=== PATIENT | female | born 1950 | race Caucasian/White ===

== ENCOUNTER → 2016-07-15 | Outpatient (CLI) | payer BC ==
[~2016-07-15] MED LIST: AMARYL2 MG PO; ASPIRIN CHEWABL81 MG PO; CITRACAL SOFT1 EACH PO; CYMBALTA60 MG PO; FERROUS SULFAT325 MG PO; FOSAMAX70 MG PO; METFORMIN HCL1000 MG PO; NEURONTIN 300300 MG PO; NORVASC 5 MG TAB5 MG PO; OMEPRAZOLE40 MG PO; PROVENTIL HFA 61 INH INH; REQUIP0.25 MG PO; SYNTHROID150 MCG PO; VITAMIN D 11000 UNIT PO; ZESTRIL 40 MG T40 MG PO; ZOCOR 10 MG TAB10 MG PO
== END ==
LOC: RT 11:19
DX: J44.9 Chronic obstructive pulmonary disease, unspecified (principal); G47.34 Idiopathic sleep related nonobstructive alveolar hypoventilation
CPT/HCPCS: 36600; 82803

== ENCOUNTER → 2016-07-17 | Outpatient (CLI) | payer BC | LOC: SLEEP 21:30 | DX: G47.33 Obstructive sleep apnea (adult) (pediatric) (principal) | CPT/HCPCS: 95810 ==

== ENCOUNTER 2020-05-28 16:33 | Emergency (ER) | payer MEDICARE, OTHER ==
[~2020-05-28 16:33] MED LIST changes: -ASPIRIN CHEWABL81 MG PO; +BACLOFEN10 MG PO; +CIMZIA400 MG/2 M SC; +ENBREL25 MG/0.5 SC; +GLUCOPHAGE1000 MG PO; +JANUVIA100 MG PO; +LIPITOR10 MG PO; +LOPERAMIDE2 MG PO; +NAPROSYN500 MG PO; +NAPROXEN500 MG PO; +PLAQUENIL 200200 MG PO; +PROTONIX 40 MG40 M1 PO; +PROTONIX40 MG PO; -PROVENTIL HFA 61 INH INH; +QUESTRAN PACKET4 GM PO; +REXULTI PO; +ULTRAM50 MG PO; +XELODA150 MG PO
[2020-05-28 18:47] LABS: HEMOGLOBIN 14.7 gm/dl (12.3-15.3); RED BLOOD COUNT 4.5 M/UL (4.00-5.10); WHITE BLOOD COUNT 8.6 K/UL (4.5-11.0)
[2020-05-28 19:01] LABS: BUN/CREATININE RATIO 11 (0-10)
[2020-05-28] MEDS ORDERED: ZOFRAN4 MG PO (20:25)
[2020-05-29] MEDS ORDERED: ZOFRAN 4 MG TAB4 MG PO (13:18)
[2020-08-12] MEDS ORDERED: PROTONIX40 MG PO (09:18)
== END 2020-05-28 21:00 | disposition home or self-care (01) ==
LOC: ER1 16:33
PROVIDERS: Preventive Medicine Occupational Medicine
DX: R19.7 Diarrhea, unspecified (principal); Z20.822 Contact with and (suspected) exposure to COVID-19
CPT/HCPCS: 0240U; 71045; 80053; 81001; 83605; 83690; 85025; 85652; 86140; 87086; 96374; 99284; J2405; J7030

== ENCOUNTER 2020-06-05 08:10 | Inpatient (IN) | payer MEDICARE, OTHER ==
[~2020-06-05] VITALS: Ht 160 cm; Wt 72.1 kg
[~2020-06-05 08:10] MED LIST changes: +ZOFRAN 4 MG TAB4 MG PO; +ZOFRAN4 MG PO
[2020-06-05 08:59] LABS: ADENOVIRUS F 40/41 Not Detected (Negative); ASTROVIRUS Not Detected (Negative); CAMPYLOBACTER Not Detected (Negative); CRYPTOSPORIDIUM Not Detected (Negative); E.COLI 0157 Not Detected (Negative); ENTAMOEBA HISTOLYTICA Not Detected (Negative); ENTEROAGGREGATIVE E.COLI (EAEC Not Detected (Negative); ENTEROPATHOGENIC E.COLI (EPEC) Not Detected (Negative); ENTEROTOXIGENIC E.COLI (ETEC) Not Detected (Negative); GIARDIA LAMBLIA Not Detected (Negative); NOROVIRUS GI/GII Not Detected (Negative); PLESIOMONAS SHIGELLOIDES Not Detected (Negative); ROTOVIRUS A Not Detected (Negative); SALMONELLA Not Detected (Negative); SAPOVIRUS Not Detected (Negative); SHIG/ENTEROINVAS.ECOLI (EIEC) Not Detected (Negative); SHIGA-LIK TOX.PRO.E.COLI (STEC Not Detected (Negative); VIBRIO Not Detected (Negative); VIBRIO CHOLERAE Not Detected (Negative); YERSINIA ENTEROCOLITICA Not Detected (Negative)
[2020-06-05 09:00] LABS: HEMOGLOBIN 15.1 gm/dl (12.3-15.3); RED BLOOD COUNT 4.62 M/UL (4.00-5.10); WHITE BLOOD COUNT 17.4 K/UL (4.5-11.0)
[2020-06-05] MEDS ORDERED: HUMULIN R100 UNIT/1 SC (09:18)
[2020-06-05] MEDS ORDERED: BRINTELLIX10 MG PO (09:28)
[2020-06-05 10:35] LABS: CLOSTRIDIUM DIFFICILE TOX A/B DETECTED (Negative)
[2020-06-05] MEDS ORDERED: BREO ELLIPTA 11 EACH INH (13:21)
[2020-06-05] MEDS ORDERED: DAILY VITE1 EACH PO (13:22)
[2020-06-05] MEDS ORDERED: L-LYSINE500 M1 PO (13:22)
[2020-06-05] MEDS ORDERED: NYSTATIN-TRIAMC15 GM TOP (13:25)
[2020-06-05] MEDS ORDERED: VENTOLIN HFA 66.7 GM INH (19:44)
[2020-06-05] MEDS ORDERED: ASPIRIN EC81 MG PO (19:44)
[2020-06-06 04:59] LABS: WHITE BLOOD COUNT 13.4 K/UL (4.5-11.0)
[2020-06-06 05:05] LABS: HEMOGLOBIN 12.7 gm/dl (12.3-15.3); RED BLOOD COUNT 3.93 M/UL (4.00-5.10)
[2020-06-07 06:50] LABS: HEMOGLOBIN 12.5 gm/dl (12.3-15.3); RED BLOOD COUNT 3.94 M/UL (4.00-5.10)
[2020-06-07 06:59] LABS: BUN/CREATININE RATIO 4 (0-10)
[2020-06-07 07:02] LABS: WHITE BLOOD COUNT 9.9 K/UL (4.5-11.0)
[2020-06-07] MEDS ORDERED: LISINOPRIL40 MG PO (11:54)
[2020-06-07] MEDS ORDERED: VANCOMYCIN HCL125 MG PO (11:54)
[2020-06-07] MEDS ORDERED: BREO ELLIPTA 11 EACH INH (12:03)
[2020-08-12] MEDS ORDERED: PROTONIX40 MG PO (09:18)
== END 2020-06-07 15:08 | disposition home or self-care (01) | DRG 372 ==
LOC: ER1 08:10 → CDU 11:42 → MED SURG 4 06-06 11:32
PROVIDERS: Physician Assistant Medical; ADMIT Internal Medicine
DX: A04.72 Enterocolitis due to Clostridium difficile, not specified as recurrent (principal); N13.30 Unspecified hydronephrosis; E83.42 Hypomagnesemia; J44.9 Chronic obstructive pulmonary disease, unspecified; E03.9 Hypothyroidism, unspecified; E05.00 Thyrotoxicosis with diffuse goiter without thyrotoxic crisis or storm; E11.9 Type 2 diabetes mellitus without complications; F41.9 Anxiety disorder, unspecified; I10 Essential (primary) hypertension; M06.9 Rheumatoid arthritis, unspecified; Z90.49 Acquired absence of other specified parts of digestive tract; Z88.2 Allergy status to sulfonamides; Z88.6 Allergy status to analgesic agent; E78.00 Pure hypercholesterolemia, unspecified; G47.30 Sleep apnea, unspecified; F32.9 Major depressive disorder, single episode, unspecified; Z98.51 Tubal ligation status; Z96.652 Presence of left artificial knee joint; Z87.891 Personal history of nicotine dependence; Z79.4 Long term (current) use of insulin
CPT/HCPCS: 36415; 80048; 80053; 81001; 82962; 83605; 83690; 83735; 85025; 85027; 87040; 87507; 94664; 96374; 99285; J1650; J2405; J3475; J7030; Q9967; U0002

== ENCOUNTER → 2020-06-26 | Outpatient (CLI) | payer MEDICARE, OTHER ==
[~2020-06-26] MED LIST changes: +ASPIRIN EC81 MG PO; +BREO ELLIPTA 11 EACH INH; +BRINTELLIX10 MG PO; +DAILY VITE1 EACH PO; +HUMULIN R100 UNIT/1 SC; +L-LYSINE500 M1 PO; +LISINOPRIL40 MG PO; +NYSTATIN-TRIAMC15 GM TOP; +VANCOMYCIN HCL125 MG PO; +VENTOLIN HFA 66.7 GM INH
[2020-06-26 15:42] LABS: ADENOVIRUS F 40/41 Not Detected (Negative); ASTROVIRUS Not Detected (Negative); CAMPYLOBACTER Not Detected (Negative); CRYPTOSPORIDIUM Not Detected (Negative); E.COLI 0157 Not Detected (Negative); ENTAMOEBA HISTOLYTICA Not Detected (Negative); ENTEROAGGREGATIVE E.COLI (EAEC Not Detected (Negative); ENTEROPATHOGENIC E.COLI (EPEC) Not Detected (Negative); ENTEROTOXIGENIC E.COLI (ETEC) Not Detected (Negative); GIARDIA LAMBLIA Not Detected (Negative); NOROVIRUS GI/GII Not Detected (Negative); PLESIOMONAS SHIGELLOIDES Not Detected (Negative); ROTOVIRUS A Not Detected (Negative); SALMONELLA Not Detected (Negative); SAPOVIRUS Not Detected (Negative); SHIG/ENTEROINVAS.ECOLI (EIEC) Not Detected (Negative); SHIGA-LIK TOX.PRO.E.COLI (STEC Not Detected (Negative); VIBRIO Not Detected (Negative); VIBRIO CHOLERAE Not Detected (Negative); YERSINIA ENTEROCOLITICA Not Detected (Negative)
[2020-06-27 09:10] LABS: CLOSTRIDIUM DIFFICILE TOX A/B DETECTED (Negative)
== END ==
LOC: LAB 14:34
PROVIDERS: Emergency Medicine
DX: R10.84 Generalized abdominal pain (principal)
CPT/HCPCS: 36415; 87077; 87086; 87186; 87507

== ENCOUNTER → 2020-07-25 | Outpatient (CLI) | payer MEDICARE, OTHER | LOC: MAMO 09:00 | DX: Z12.31 Encounter for screening mammogram for malignant neoplasm of breast (principal) | CPT/HCPCS: 77063; 77067 ==

== ENCOUNTER → 2020-08-12 | Outpatient (CLI) | payer MEDICARE, OTHER ==
[2020-08-12 09:22] LABS: BUN/CREATININE RATIO 22 (0-10)
== END ==
LOC: OPSV2 08:00
PROVIDERS: Urology
DX: Z01.818 Encounter for other preprocedural examination (principal); N13.30 Unspecified hydronephrosis
CPT/HCPCS: 36415; 80048; 93005

== ENCOUNTER → 2020-08-14 | Day surgery (SDC) | payer MEDICARE, OTHER | END | disposition home or self-care (01) | LOC: OR 06:13 | DX: N13.30 Unspecified hydronephrosis (principal); B37.3 Candidiasis of vulva and vagina; J44.9 Chronic obstructive pulmonary disease, unspecified; E11.9 Type 2 diabetes mellitus without complications; G47.33 Obstructive sleep apnea (adult) (pediatric); I10 Essential (primary) hypertension; E03.2 Hypothyroidism due to medicaments and other exogenous substances; K21.9 Gastro-esophageal reflux disease without esophagitis; E78.5 Hyperlipidemia, unspecified; M19.90 Unspecified osteoarthritis, unspecified site; Z87.891 Personal history of nicotine dependence; Z88.5 Allergy status to narcotic agent; Z91.040 Latex allergy status; Z88.2 Allergy status to sulfonamides; Z91.09 Other allergy status, other than to drugs and biological substances; Z79.82 Long term (current) use of aspirin; Z79.4 Long term (current) use of insulin; Z79.891 Long term (current) use of opiate analgesic; Z79.899 Other long term (current) drug therapy | CPT/HCPCS: 74420; 76000; 82962; C1769; C1894; C2617; J1100; J1885; J1956; J2250; J2405; J2704; J3010; J7030; J7120; Q9962 ==

== ENCOUNTER → 2021-09-01 | Outpatient (CLI) | payer MEDICARE, OTHER | LOC: CT 08:46 | DX: N13.30 Unspecified hydronephrosis (principal); N28.1 Cyst of kidney, acquired | CPT/HCPCS: 36415; 82565; 84520; Q9967 ==